=== PATIENT | male | born 1960 | race Caucasian/White ===

== ENCOUNTER 2024-12-01 15:50 | Outpatient (CLI) | payer BC, SELFPAY | END 2024-12-01 15:51 | disposition home or self-care (01) | LOC: SLEEP 15:56 | PROVIDERS: Referring Provider Nurse Practitioner Family; Visit Provider Internal Medicine Pulmonary Disease | DX: G47.33 Obstructive sleep apnea (adult) (pediatric) (principal) | CPT/HCPCS: G0399 ==